=== PATIENT | female | born 1960 | race Asian ===

== ENCOUNTER 2022-03-28 15:58 | Emergency (ER) | payer OTHER ==
[2022-03-28 16:13] VITALS: BP 109/62; PULSE 64; RESP 18; TEMP 98.6; BMI 27.4
== END 2022-03-28 19:00 | disposition home or self-care (01) ==
LOC: JER 15:58 → JERFT 15:58
DX: S80.12XA Contusion of left lower leg, initial encounter (principal); S70.02XA Contusion of left hip, initial encounter; W01.0XXA Fall on same level from slipping, tripping and stumbling without subsequent striking against object, initial encounter
CPT/HCPCS: 73700-TC-RT; 99284-25